=== PATIENT | female | born 1950 | race Caucasian/White ===

== ENCOUNTER → 2017-08-07 | Outpatient (CLI) | payer MEDICARE, BC ==
[~2017-08-07] MED LIST: ADVAIR 250-501 EACH; CELEBREX 200 M200 M1 PO; CYMBALTA60 MG PO; KLOR-CON 10 ER10 MEQ PO; LYRICA 50 MG50 MG PO; POTASSIUM20 PO; SINGULAIR 10 MG10 M1 PO; VENTOLIN HFA 1818 GM INH; VICODIN 5-5001 EACH PO
== END ==
LOC: M.RAD 09:00
DX: M81.0 Age-related osteoporosis without current pathological fracture (principal); M16.0 Bilateral primary osteoarthritis of hip; M79.7 Fibromyalgia; F41.9 Anxiety disorder, unspecified; Z87.39 Personal history of other diseases of the musculoskeletal system and connective tissue